=== PATIENT | female | born 1950 ===

== ENCOUNTER 2017-10-23 06:54 | Inpatient (IN) | payer MEDICARE, OTHER ==
[2017-10-23] MEDS ORDERED: Lidocaine 4% (Laryng-O-Jet) Kit MM ONE ×2 (07:03→08:12)
[2017-10-23] MEDS ORDERED: Propofol 10 mg/ml Inj (20 ML) ONE (07:03)
[2017-10-23] MEDS ORDERED: Succinylcholine 200 mg/10 ml Inj IV ONE (07:03)
[2017-10-23] MEDS ORDERED: Rocuronium 10 mg/ml (5 ml) ONE ×2 (07:03→08:11)
[2017-10-23] MEDS ORDERED: Etomidate 20 mg/10ml Inj IV ONE ×2 (07:03→08:12)
[2017-10-23] MEDS ORDERED: Phenylephrine 10 mg/ml Inj ONE ×2 (07:05→08:12)
[2017-10-23 07:11] VITALS: BMI 35.7
[2017-10-23] MEDS ORDERED: Midazolam 2 MG/2 ML VIAL ONE (08:11)
[2017-10-23 08:25] LABS: HEMOGLOBIN 12.9 g/dL (12.0-16.0); MEAN CELL VOLUME 86.6 fl (81.0-99.0); MEAN CORPUSCULAR HEMOGLOBIN 28.5 pg (27.0-31.0); MEAN CORPUSCULAR HGB CONC 32.9 g/dL (33.0-37.0); RBC 4.53 Mil/uL (3.80-5.20); RED CELL DISTRIBUTION WIDTH 15.6 % (11.5-14.5); WHITE BLOOD COUNT 8.6 K/uL (4.8-10.8)
[2017-10-23] MEDS ORDERED: Morphine 1 mg/ml preservative-free Inj(Duramorph) ONE (08:41)
[2017-10-23] MEDS ORDERED: EPINEPHrine 1 mg/ml (1:1000) Inj ONE (08:41)
[2017-10-23] MEDS ORDERED: Thrombin Topical 5,000 Int Units Spray Kit ONE (08:42)
[2017-10-23] MEDS ORDERED: Lactated Ringer's 1,000 ML IV ONE ×2 (08:42→09:30)
[2017-10-23] MEDS ORDERED: Absorbable Gelatin Sponge Size 100 ONE (08:42)
[2017-10-23] MEDS ORDERED: Ciprofloxacin 400mg/200ml D5W 0 MG/0 ML BAG IVPB ONE (08:42)
[2017-10-23] MEDS ORDERED: Clindamycin 600mg/50ml NS 600 MG/50 ML BAG IVPB ONE (09:00)
[2017-10-23] MEDS ORDERED: ePHEDrine 50 mg/ml Inj ONE (09:09)
[2017-10-23] MEDS ORDERED: Vancomycin 1 g Inj IVPB ONE (09:20)
[2017-10-23] MEDS ORDERED: Bupivacaine 0.5% Inj(30mL) IJ ONE (09:44)
[2017-10-23] MEDS ORDERED: Morphine 1 mg/ml preservative-free Inj(Duramorph) IV ONE (09:44)
[2017-10-23] MEDS ORDERED: EPINEPHrine 1 mg/ml (1:1000) Inj IV ONE (09:44)
--- NOTE | 2017-10-23 10:56 | PCM.SURG1 ---
Surgeon's Initial Post Op Note - Surgeon's Notes Surgeon: Felipa Hoang MD Sports Manager: Maritza Bundy PA-C; Mary Suazo Type of Anesthesia: General Endo Pre-Operative Diagnosis: Right knee osteoarthritis Operative Findings: see op report Post-Operative Diagnosis: same as pre-op dx Operation Performed: RTKR Specimen/Specimens Removed: right knee bone and soft tissue Estimated Blood Loss: EBL {In ML}: 150 Date of Surgery/Procedure: 10/23/17 Time of Surgery/Procedure: 09:00
[2017-10-23] MEDS ORDERED: HYDROmorphone 0.5 mg/0.5 ml ISec IVP PRN ×2 (10:58→13:27)
[2017-10-23] MEDS ORDERED: Albuterol 0.083% Inhal Sol (2.5 mg/3 mL) UD ONE (11:09)
[2017-10-23] MEDS ORDERED: Albuterol 0.083% Inhal Sol (2.5 mg/3 mL) UD INH ONE (11:10)
--- NOTE | 2017-10-23 12:02 | OP ---
PROCEDURE DATE: 10/23/2017 PREOPERATIVE DIAGNOSES: Right knee osteoarthritis. POSTOPERATIVE DIAGNOSIS: Right knee osteoarthritis. PROCEDURE: Right total knee replacement. ATTENDING SURGEON: Felipa Hoang MD VESSEL ENGINEER: Maritza Bundy PA-C IMPLANTS SIZE: Size 1 tibia, size 1 femur, 26 mm patella, 11 mm polyethylene insert and these are all the [employer] implants. ANESTHESIA TYPE: General. ESTIMATED BLOOD LOSS: 50 mL. COMPLICATIONS: None. HISTORY: The patient with prolonged history of right knee pain progressively getting worse despite extensive conservative management, which included activity modification, injections, anti-inflammatory modification and physical therapy. X-rays had revealed advanced arthritis. Patient was indicated for total knee replacement due to continued pain and limited mobility. I had a detailed discussion with the patient in the office explaining the nature of the surgery, alternatives of surgery, risks and benefits, rehabilitation protocol and surgical markings. Risks of surgery include but not limited to continued pain, lack of motion, infection, vascular injury, DVT / PE, nerve injury including peroneal nerve dysfunction, reflex sympathetic dystrophy, compartment syndrome, unforeseen medical and/or anesthesia complications, limb loss, and even . The patient expressed an understanding of the risks and possible benefits of the procedure, and is also aware of the alternatives to surgery. PROCEDURE: On the day of the surgery, the patient was admitted to pre-operative holding area. A laterality sheet was completed confirming the correct operative site. The correct surgical knee was marked in the holding area and informed consent was signed from the patient. Once again, I reviewed the risks and benefits of the surgery with the patient in detail. These risks include but are not limited to continued pain, lack of motion, infection, vascular injury, DVT / PE, nerve injury including peroneal nerve dysfunction, reflex sympathetic dystrophy, symptomatic hardware, need for further procedure and surgeries, instability, iatrogenic fractures, compartment syndrome, unforeseen medical and/or anesthesia complications, limb loss, and even . The patient expressed an understanding of the risks and possible benefits of the procedure, also aware of the alternatives to surgery and signed the informed consent. The patient was transported to the operating room and placed in the supine position, general anesthesia was obtained. Exam under anesthesia revealed . A padded tourniquet was applied to patient's operative thigh and appropriate prophylactic antibiotics were given. The operative leg was draped and prepped in standard sterile manner. Timeout was completed, confirming patient's right knee to be the correct operative site. Using an Esmarch, the extremity was exsanguinated and tourniquet was inflated to 350 mmHg. The surgical incision markings were made using patella border, tibial tubercle, patella and quadriceps tendon. Using a 10 blade, a midline incision was made. Skin dissection was taken until the prepatellar fascia was identified and the corners of the patellar tendon were marked for proper closure at the end of the procedure. Using a fresh 10 blade, a medial parapatellar arthrotomy was performed. The knee was exposed in the standard manner. The deep MCL was elevated for exposure, medial and lateral menisci were removed, ACL and PCL were also transected. The tibia was subluxed anteriorly. Planned tibial cut was made with power saw, using extra-medullary guide, perpendicular to mechanical axis of the tibia. After the cut was made, the alignment was also checked and was found to be appropriate. Tibial cut surface was measured with trial base plate and it was noted that size 1 tibial baseplate was provide sufficient coverage without overhang. Tibial component was externally rotated and marked. Next, the knee was placed into 90 degrees of flexion. A drill hole was made within the femoral notch anterior to PCL insertion for placement of intramedullary femoral jag. Intramedullary femoral jag was inserted within the femoral canal and planned distal femoral cut was made. After the cut, knee was brought into full extension. Spacer blocks were used to check the extension balancing both in full extension and 30 degrees of flexion. It was found that a 11 mm trial spacer block allowed full extension with symmetric varus and valgus balancing. Next we proceed with Patella resurfacing. Patella width was found to have [place] patella width was 24. Using the free-hand technique the arthritic patella surface was resected. Patella was sized using the guide and it was noted that the patella button size was 26 mm. Patella dome button would be appropriate for the patient. Next the size of femoral component was determined using the posterior referencing guide. It was noted that a size 1 femoral implant. Femur would be appropriate for this patient without causing any significant notching. A 4 x 1 cutting block was placed and flexion gap balancing was checked. The flexion gap was found to be symmetric to the extension gap. Anterior and posterior condyle, anterior and posterior chamfer cuts were made. Next, appropriate size box cut for femoral component was prepared using the guide. The femoral trial component was impacted onto the distal femur. Appropriate size tibial trial component was also placed on the cut surface of the tibia. Using the drill and punch, keel for tibial implant was prepared. Trial tibial tray was secured onto the tibia using pins. Different size trial polyethylene inserts were secured on to the trial tibial tray to critically assess the following parameters: Full range of motion, extension and flexion gap balancing, mid-flexion stability, anterior and posterior drawer, and patellar tracking. All parameter were found to be satisfactory with 11 mm insert. All the trial components were removed. Implants were opened on the back table. Cement was mixed and we proceed with cement fixation of the implants. Tibial tray, femoral component and patellar dome button were secured with cement. Polyethylene insert was secured onto the tibial tray using locking mechanism. The knee was reduced and brought into full extension. Cement was allowed to harden until final component fixation. Knee was taken through the final range of motion for stability testing, and found to be satisfactory. 60 cc of custom cocktail mixture was injected into posterior capsule, MCL, LCL, quadriceps tendon, and patellar tendon. Wound was copiously irrigated with sterile antibiotic solution using pulse lavage. Arthrotomy was closed using heavy suture and wound was closed in standard manner. Patient was extubated, transferred to stretcher and taken to the recovery room. Post-operative instructions were provided, physical therapy consult was requested along with DVT prophylaxis and appropriate pain medications. During this procedure, I was assisted by Maritza Bundy PA-C, who assisted in positioning the patient on the operating room table as well as transferring the patient from the operating room table to the recovery room stretcher. In addition, Maritza Bundy PA-C assisted me during the actual operative procedure by positioning, protecting critical neurovascular structures, exposure of the joint, and proper positioning of the implants. The presence of Maritza Bundy PA-C as my operative special education teaching assistant was medically necessary to ensure the utmost safety of the patient in the pre, intra-, and post-operative periods. Felipa Hoang MD
--- NOTE | 2017-10-23 13:15 | RAD ---
PROCEDURE: Right Knee Radiographs. HISTORY: s/p RTKR COMPARISON: None. FINDINGS: The patient is status post total right knee arthroplasty. The tibial component of the prosthesis is positioned slightly medially off center relative to the tibial plateau. A small amount expected air and fluid is seen in the suprapatellar bursa. A wound VAC and skin odalis are present anteriorly. IMPRESSION: Status post total right knee arthroplasty as described above.
[2017-10-23] MEDS ORDERED: Benzocaine/Menthol (Cepacol) Lozenge PO PRN (15:50)
[2017-10-23] MEDS: Oxycodone/Acetaminophen 5/325 mg Tab PO PRN (18:29)
[2017-10-23] MEDS: Insulin Lispro Mix 75/25 100 units/ml (HumaLog) 10ml SC SCH (18:30)
[2017-10-23] MEDS: oxyCODONE 10 mg ER Tab (oxyCONTIN) PO SCH (20:52)
[2017-10-23] MEDS: Insulin Detemir 100 Units/ml Inj SC SCH (22:21)
[2017-10-24] MEDS: Oxycodone/Acetaminophen 5/325 mg Tab PO PRN ×3 (02:25→14:31)
[2017-10-24 06:25] LABS: BASO % 0.3 % (0.0-2.0); EOS # 0.3 K/uL (0.0-0.7); EOS % 2.4 % (0.0-4.0); HEMOGLOBIN 10.5 g/dL (12.0-16.0); LYMPH # 1.3 K/uL (1.0-4.3); LYMPH % 10.5 % (20.0-40.0); MEAN CELL VOLUME 87.2 fl (81.0-99.0); MEAN CORPUSCULAR HEMOGLOBIN 28.5 pg (27.0-31.0); MEAN CORPUSCULAR HGB CONC 32.7 g/dL (33.0-37.0); MEAN PLATELET VOLUME 9.8 fl (7.2-11.7); MONO # 1.6 K/uL (0.0-0.8); MONO % 13.7 % (0.0-10.0); NEUT # 8.7 K/uL (1.8-7.0); NEUT % 73.1 % (50.0-75.0); NRBC % 0.1 % (0.0-0.0); RBC 3.68 Mil/uL (3.80-5.20); WHITE BLOOD COUNT 11.9 K/uL (4.8-10.8)
[2017-10-24 06:46] LABS: CALCIUM 7.7 mg/dL (8.4-10.2)
--- NOTE | 2017-10-24 08:28 | CP.PCM.HP ---
History of Present Illness - History of Present Illness History of Present Illness: pt admitted yesterday for r tkr after failing outpt therapy. pt has h/o mi and dm2, on tele and stable. distal pms intact. no f/c, n/v/d. bw noted Present on Admission - Present on Admission Any Indicators Present on Admission: Yes History of Uncontrolled Diabetes: Yes Review of Systems - Musculoskeletal Musculoskeletal: As Per HPI, Arthralgias Past Patient History - Infectious Disease Hx of Infectious Diseases: None - Tetanus Immunizations Tetanus Immunization: Unknown - Past Medical History & Family History Past Medical History?: Yes - Past Social History Smoking Status: Never Smoked - CARDIAC Hx Cardiac Disorders: Yes Hx Circulatory Problems: Yes Hx Congestive Heart Failure: Yes Hx Heart Attack: Yes Hx Hypercholesterolemia: Yes Hx Hypertension: Yes Hx Pacemaker: No Hx Peripheral Edema: Yes Other/Comment: cardiac stent - PULMONARY Hx Respiratory Disorders: Yes Hx Asthma: Yes Hx Bronchitis: Yes Hx Pneumonia: Yes Hx Tuberculosis: No - NEUROLOGICAL Hx Neurological Disorder: Yes HX Cerebrovascular Accident: No Hx Paralysis: No Hx Seizures: No Other/Comment: Neuropathy - HEENT Hx HEENT Problems: Yes (glasses) Hx Cataracts: Yes - RENAL Hx Chronic Kidney Disease: Yes Hx Renal Failure: Yes Other/Comment: left kidney 80% functioning; right kidney 10% functioning - ENDOCRINE/METABOLIC Hx Endocrine Disorders: Yes Hx Diabetes Mellitus Type 1: Yes Hx Diabetes Mellitus Type 2: Yes - HEMATOLOGICAL/ONCOLOGICAL Hx Blood Disorders: No Hx Anemia: Yes Hx Blood Transfusions: No Hx Blood Transfusion Reaction: No Hx Cancer: No Hx Human Immunodeficiency Virus (HIV): No - INTEGUMENTARY Hx Dermatological Problems: No - MUSCULOSKELETAL/RHEUMATOLOGICAL Hx Musculoskeletal Disorders: Yes Hx Arthritis: Yes Hx Falls: No Hx Osteoarthritis: Yes Hx Osteoporosis: Yes Hx Unsteady Gait: Yes (walker) Other/Comment: egd, 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, gastroparesis, duodenal diverticulum - GASTROINTESTINAL Hx Gastrointestinal Disorders: Yes (APPENDECTOMY) Hx Gall Bladder Disease: Yes (CHOLECYSTECTOMY) Hx Gastritis: Yes Other/Comment: constipation, obese - GENITOURINARY/GYNECOLOGICAL Hx Genitourinary Disorders: Yes Hx Incontinence: Yes Hx Sexually Transmitted Disorders: No Other/Comment: urinary incontinence - PSYCHIATRIC Hx Psychophysiologic Disorder: Yes Hx Anxiety: Yes Hx Depression: Yes Hx Emotional Abuse: No Hx Hallucinations: Yes Hx Physical Abuse: No Hx Substance Use: No Other/Comment: Hallucinations - SURGICAL HISTORY Hx Surgeries: Yes Hx Amputation: Yes (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 Bladder surgery - ANESTHESIA Hx Anesthesia: Yes Hx Anesthesia Reactions: No Hx Malignant Hyperthermia: No Meds Allergies/Adverse Reactions: Allergies Allergy/AdvReac Type Severity Reaction Status Date / Time ampicillin Allergy ANAPHYLAXIS Verified 10/04/17 15:09 Penicillins Allergy ANAPHYLAXIS Verified 10/04/17 15:09 Physical Exam - Constitutional Appears: Well, Non-toxic, No Acute Distress - Head Exam Head Exam: ATRAUMATIC, NORMAL INSPECTION, NORMOCEPHALIC - Eye Exam Eye Exam: EOMI, Normal appearance, PERRL Pupil Exam: NORMAL ACCOMODATION, PERRL - ENT Exam ENT Exam: Mucous Membranes Moist, Normal Exam - Neck Exam Neck exam: Positive for: Normal Inspection - Respiratory Exam Respiratory Exam: Clear to Auscultation Bilateral, NORMAL BREATHING PATTERN - Cardiovascular Exam Cardiovascular Exam: REGULAR RHYTHM, RRR, +S1, +S2 - GI/Abdominal Exam GI & Abdominal Exam: Normal Bowel Sounds, Soft. absent: Tenderness - Extremities Exam Extremities exam: Positive for: full ROM, normal capillary refill, normal inspection, tenderness, pedal pulses present Additional comments: r knee pain. distal pms intact - Back Exam Back exam: NORMAL INSPECTION - Neurological Exam Neurological exam: Abnormal Gait, Alert, CN II-XII Intact, Oriented x3, Reflexes Normal - Psychiatric Exam Psychiatric exam: Normal Affect, Normal Mood - Skin Skin Exam: Dry, Intact, Normal Color, Warm Results - Vital Signs Recent Vital Signs: Last Vital Signs Temp 98.4 F 10/24/17 07:44 Pulse 71 10/24/17 07:44 Resp 18 10/24/17 07:44 BP 155/72 H 10/24/17 07:44 Pulse Ox 98 10/24/17 07:44 - Labs Result Diagrams: 10/24/17 05:30 10/24/17 05:30 Labs: Laboratory Results - last 24 hr 10/23/17 10/23/17 10/23/17 07:41 07:48 07:48 WBC 8.6 RBC 4.53 Hgb 12.9 Hct 39.2 MCV 86.6 MCH 28.5 MCHC 32.9 L RDW 15.6 H Plt Count 207 MPV Neut % (Auto) Lymph % (Auto) Mitchell % (Auto) Eos % (Auto) Baso % (Auto) Neut # (Auto) Lymph # (Auto) Mitchell # (Auto) Eos # (Auto) Baso # (Auto) Sodium Potassium Chloride Carbon Dioxide Anion Gap BUN Creatinine Est GFR ( Amer) Est GFR (Non-Af Amer) POC Glucose (mg/dL) 113 H Random Glucose Calcium Blood Type A NEGATIVE Antibody Screen Negative 10/23/17 10/23/17 10/24/17 11:04 21:10 04:54 WBC RBC Hgb Hct MCV MCH MCHC RDW Plt Count MPV Neut % (Auto) Lymph % (Auto) Mitchell % (Auto) Eos % (Auto) Baso % (Auto) Neut # (Auto) Lymph # (Auto) Mitchell # (Auto) Eos # (Auto) Baso # (Auto) Sodium Potassium Chloride Carbon Dioxide Anion Gap BUN Creatinine Est GFR ( Amer) Est GFR (Non-Af Amer) POC Glucose (mg/dL) 114 H 106 147 H Random Glucose Calcium Blood Type Antibody Screen 10/24/17 10/24/17 05:30 05:30 WBC 11.9 H RBC 3.68 L Hgb 10.5 L D Hct 32.1 L MCV 87.2 MCH 28.5 MCHC 32.7 L RDW 15.0 H Plt Count 173 MPV 9.8 Neut % (Auto) 73.1 Lymph % (Auto) 10.5 L Mitchell % (Auto) 13.7 H Eos % (Auto) 2.4 Baso % (Auto) 0.3 Neut # (Auto) 8.7 H Lymph # (Auto) 1.3 Mitchell # (Auto) 1.6 H Eos # (Auto) 0.3 Baso # (Auto) 0.0 Sodium 139 Potassium 4.8 Chloride 103 Carbon Dioxide 26 Anion Gap 15 BUN 32 H Creatinine 1.1 Est GFR ( Amer) 60 Est GFR (Non-Af Amer) 49 POC Glucose (mg/dL) Random Glucose 140 H Calcium 7.7 L Blood Type Antibody Screen Assessment & Plan (1) DVT prophylaxis Assessment and Plan: scd and aehose lovenox when cleared by ortho Status: Acute (2) Osteoarthritis of right knee Assessment and Plan: pod 1 s/p tkr. pain control ortho pt/ot john Status: Acute (3) Diabetes type 2, uncontrolled Assessment and Plan: home meds, fsbg, diet Status: Acute - Assessment and Plan (Free Text) Assessment: cont all home meds monitor on tele x 24h postop then downgrade to m/s if stable Decision To Admit - Pt Status Changed To: Hospital Disposition Of: Inpatient - Admit Certification Admit to Inpatient:: After my assessment, the patient will require hospitalization for at least two midnights. This is because of the severity of symptoms shown, intensity of services needed, and/or the medical risk in this patient being treated as an outpatient. - . Bed Request Type: Telemetry Admitting Physician: Pat Gerardo
[2017-10-24] MEDS: Insulin Lispro Mix 75/25 100 units/ml (HumaLog) 10ml SC SCH ×2 (09:06→17:27)
[2017-10-24] MEDS: Pantoprazole 40 mg EC Tab PO SCH (09:10)
[2017-10-24] MEDS: oxyCODONE 10 mg ER Tab (oxyCONTIN) PO SCH ×2 (09:13→21:09)
--- NOTE | 2017-10-24 09:14 | CP.PCM.PN ---
Subjective - Date & Time of Evaluation Date of Evaluation: 10/24/17 Time of Evaluation: 08:45 - Subjective Subjective: S/P RTKR POD#1 Pt seen and examined at bedside, in NAD Pt c/o throat pain fromintubation, dry mouth and Right knee pain Pt denies any chest pain, SOB, N/V/D, numbness/tingling RLE Objective - Vital Signs/Intake and Output Vital Signs (last 24 hours): Temp Pulse Resp BP Pulse Ox 98.4 F 71 18 155/72 H 98 10/24/17 07:44 10/24/17 07:44 10/24/17 07:44 10/24/17 07:44 10/24/17 07:44 - Medications Medications: Current Medications Acetaminophen (Tylenol 325mg Tab) 325 mg PO Q4 PRN PRN Reason: pain1-3 Aspirin (Ecotrin) 81 mg PO DAILY [facility] Atorvastatin Calcium (Lipitor) 20 mg PO HS [facility] Last Admin: 10/23/17 21:03 Dose: 20 mg Benzocaine/Menthol (Cepacol Sore Throat) 1 sunny PO Q2 PRN PRN Reason: Sore Throat Last Admin: 10/23/17 18:35 Dose: 1 sunny Celecoxib (Celebrex) 100 mg PO Q12 [facility] Last Admin: 10/23/17 20:52 Dose: 100 mg Clopidogrel Bisulfate (Plavix) 75 mg PO DAILY [facility] Docusate Sodium (Colace) 100 mg PO TID [facility] Last Admin: 10/23/17 18:30 Dose: 100 mg Famotidine (Pepcid) 20 mg PO DAILY [facility] Ferrous Sulfate (Feosol) 325 mg PO DAILY [facility] Vancomycin HCl 1 gm/ Sodium (Chloride) 250 mls @ 166.667 mls/hr IVPB ONCE ONE PRN Reason: Protocol Stop: 10/24/17 09:29 Insulin Detemir (Levemir) 20 units SC HS [facility] Last Admin: 10/23/17 22:21 Dose: 20 units Insulin Lispro Protam/Lispro Human (Humalog Mix 75/25) 20 units SC ACBD [facility] Last Admin: 10/23/17 18:30 Dose: 20 units Ketorolac Tromethamine (Toradol) 15 mg IM Q8 [facility] Stop: 10/25/17 23:59 Last Admin: 10/24/17 01:07 Dose: 15 mg Metoprolol Tartrate (Lopressor) 25 mg PO BID [facility] Last Admin: 10/23/17 18:29 Dose: Not Given Montelukast Sodium (Singulair) 10 mg PO HS [facility] Last Admin: 10/23/17 21:04 Dose: 10 mg Oxycodone HCl (Oxycontin Extended Release Tab) 10 mg PO Q12 [facility] Stop: 11/06/17 21:01 Last Admin: 10/23/17 20:52 Dose: 10 mg Oxycodone/Acetaminophen (Percocet 5/325 Mg Tab) 1 tab PO Q4 PRN PRN Reason: pain4-6 Stop: 10/26/17 15:35 Last Admin: 10/24/17 02:25 Dose: 1 tab Pantoprazole Sodium (Protonix Ec Tab) 40 mg PO DAILY [facility] Sitagliptin Phosphate (Januvia) 50 mg PO DAILY [facility] - Labs Labs: 10/24/17 05:30 10/24/17 05:30 - Constitutional Appears: Well, No Acute Distress - Respiratory Exam Respiratory Exam: Clear to Ausculation Bilateral, NORMAL BREATHING PATTERN - Cardiovascular Exam Cardiovascular Exam: REGULAR RHYTHM, RRR - Extremities Exam Additional comments: RLE: Knee dressing C/D/I Pravena dressing in place, functioning well Calves soft and nontender b/l N/V intact distally Normal ROM at ankle distal pulses wnl No foot drop Assessment and Plan - Assessment and Plan (Free Text) Assessment: 67 yo F s/p RTKR POD#1 Plan: Pain Control Incentive spirometer DVT ppx- plavix to restart today SCD b/l LE F/U labs PT/OT- WBAT RLE
[2017-10-24] MEDS: Insulin Detemir 100 Units/ml Inj SC SCH (22:52)
[2017-10-25 00:01] VITALS: RESP 18
[2017-10-25] MEDS: Oxycodone/Acetaminophen 5/325 mg Tab PO PRN ×3 (03:40→13:45)
[2017-10-25 05:44] LABS: BASO # 0.1 K/uL (0.0-0.2); BASO % 0.6 % (0.0-2.0); EOS # 0.4 K/uL (0.0-0.7); EOS % 3.2 % (0.0-4.0); HEMOGLOBIN 10.3 g/dL (12.0-16.0); LYMPH % 7.9 % (20.0-40.0); MEAN CORPUSCULAR HEMOGLOBIN 28.3 pg (27.0-31.0); MEAN CORPUSCULAR HGB CONC 32.5 g/dL (33.0-37.0); MEAN PLATELET VOLUME 9.7 fl (7.2-11.7); MONO # 1.8 K/uL (0.0-0.8); MONO % 13.4 % (0.0-10.0); NEUT # 9.9 K/uL (1.8-7.0); NEUT % 74.9 % (50.0-75.0); PLATELET COUNT 164 K/uL (130-400); RBC 3.65 Mil/uL (3.80-5.20); RED CELL DISTRIBUTION WIDTH 15.3 % (11.5-14.5); WHITE BLOOD COUNT 13.3 K/uL (4.8-10.8)
[2017-10-25 05:55] LABS: CALCIUM 7.5 mg/dL (8.4-10.2)
[2017-10-25] MEDS ORDERED: Sodium Chloride 0.9% 1,000 ML IV SCH (06:30)
--- NOTE | 2017-10-25 07:57 | CP.PCM.PN ---
Subjective - Date & Time of Evaluation Date of Evaluation: 10/25/17 Time of Evaluation: 07:55 - Subjective Subjective: doing well, pain controlled at present. ortho appriciated bw noted, ivf started andpt encouraged to take po having pain w/ sittingon bedpan reducing fluids. pt also noted to have blister to r thigh from cpm machine. wound consult nurse requested. no f/c, n/v/d Objective - Vital Signs/Intake and Output Vital Signs (last 24 hours): Temp Pulse Resp BP Pulse Ox 98.2 F 63 18 128/51 L 98 10/25/17 07:40 10/25/17 07:40 10/25/17 07:40 10/25/17 07:40 10/25/17 07:40 - Medications Medications: Current Medications Acetaminophen (Tylenol 325mg Tab) 325 mg PO Q4 PRN PRN Reason: pain1-3 Aspirin (Ecotrin) 81 mg PO DAILY [facility] Last Admin: 10/24/17 09:03 Dose: 81 mg Atorvastatin Calcium (Lipitor) 20 mg PO HS [facility] Last Admin: 10/24/17 21:09 Dose: 20 mg Benzocaine/Menthol (Cepacol Sore Throat) 1 sunny PO Q2 PRN PRN Reason: Sore Throat Last Admin: 10/23/17 18:35 Dose: 1 sunny Celecoxib (Celebrex) 100 mg PO Q12 [facility] Last Admin: 10/24/17 22:52 Dose: 100 mg Clopidogrel Bisulfate (Plavix) 75 mg PO DAILY [facility] Last Admin: 10/24/17 09:09 Dose: 75 mg Docusate Sodium (Colace) 100 mg PO TID [facility] Last Admin: 10/24/17 17:26 Dose: 100 mg Famotidine (Pepcid) 20 mg PO DAILY [facility] Last Admin: 10/24/17 09:08 Dose: 20 mg Ferrous Sulfate (Feosol) 325 mg PO DAILY [facility] Last Admin: 10/24/17 09:09 Dose: 325 mg Sodium Chloride (Sodium Chloride 0.9%) 1,000 mls @ 100 mls/hr IV .Q10H [facility] Stop: 10/26/17 06:26 Insulin Detemir (Levemir) 20 units SC [facility] Last Admin: 10/24/17 22:52 Dose: 20 units Insulin Lispro Protam/Lispro Human (Humalog Mix 75/25) 20 units SC ACBD [facility] Last Admin: 10/24/17 17:27 Dose: 20 units Ketorolac Tromethamine (Toradol) 15 mg IM Q8 [facility] Stop: 10/25/17 23:59 Last Admin: 10/25/17 00:59 Dose: Not Given Metoprolol Tartrate (Lopressor) 25 mg PO BID [facility] Last Admin: 10/24/17 17:29 Dose: 25 mg Montelukast Sodium (Singulair) 10 mg PO HS [facility] Last Admin: 10/24/17 21:09 Dose: 10 mg Oxycodone HCl (Oxycontin Extended Release Tab) 10 mg PO Q12 [facility] Stop: 11/06/17 21:01 Last Admin: 10/24/17 21:09 Dose: 10 mg Oxycodone/Acetaminophen (Percocet 5/325 Mg Tab) 1 tab PO Q4 PRN PRN Reason: pain4-6 Stop: 10/26/17 15:35 Last Admin: 10/25/17 03:40 Dose: 1 tab Pantoprazole Sodium (Protonix Ec Tab) 40 mg PO DAILY [facility] Last Admin: 10/24/17 09:10 Dose: 40 mg Sitagliptin Phosphate (Januvia) 50 mg PO DAILY [facility] Last Admin: 10/24/17 09:07 Dose: 50 mg - Labs Labs: 10/25/17 05:05 10/25/17 05:05 - Constitutional Appears: Well, Non-toxic, No Acute Distress - Head Exam Head Exam: ATRAUMATIC, NORMAL INSPECTION, NORMOCEPHALIC - Eye Exam Eye Exam: EOMI, Normal appearance, PERRL Pupil Exam: NORMAL ACCOMODATION, PERRL - ENT Exam ENT Exam: Mucous Membranes Moist, Normal Exam - Neck Exam Neck Exam: Full ROM, Normal Inspection. absent: Lymphadenopathy - Respiratory Exam Respiratory Exam: Clear to Ausculation Bilateral, NORMAL BREATHING PATTERN - Cardiovascular Exam Cardiovascular Exam: REGULAR RHYTHM, RRR, +S1, +S2. absent: Murmur - GI/Abdominal Exam GI & Abdominal Exam: Soft, Normal Bowel Sounds. absent: Tenderness - Extremities Exam Extremities Exam: Full ROM, Normal Capillary Refill, Normal Inspection. absent : Joint Swelling, Pedal Edema - Back Exam Back Exam: NORMAL INSPECTION - Neurological Exam Neurological Exam: Alert, Awake, CN II-XII Intact, Normal Gait, Oriented x3 - Psychiatric Exam Psychiatric exam: Normal Affect, Normal Mood - Skin Skin Exam: Dry, Intact, Normal Color, Warm Additional comments: blistered noted to anterior r thigh Assessment and Plan (1) DVT prophylaxis Status: Acute (2) Osteoarthritis of right knee Status: Acute (3) Diabetes type 2, uncontrolled Status: Acute - Assessment and Plan (Free Text) Assessment: (1) DVT prophylaxis Assessment and Plan: scd and aehose lovenox when cleared by ortho Status: Acute (2) Osteoarthritis of right knee Assessment and Plan: pod 2 s/p tkr. pain control ortho pt/ot john Status: Acute (3) Diabetes type 2, uncontrolled Assessment and Plan: home meds, fsbg, diet Status: Acute 4-blister to thigh-wound rn, keep site c/d ?? john today or tomorrow
[2017-10-25] MEDS: oxyCODONE 10 mg ER Tab (oxyCONTIN) PO SCH (09:04)
[2017-10-25] MEDS: Insulin Lispro Mix 75/25 100 units/ml (HumaLog) 10ml SC SCH (09:12)
[2017-10-25] MEDS: Pantoprazole 40 mg EC Tab PO SCH (09:20)
[2017-10-25 09:56] LABS: BANDS 3 % (0-2); EOSINOPHIL 4 % (0-7); LYMPHOCYTE 5 % (20-50); MONOCYTE 9 % (0-10); NEUTROPHIL 79 % (42-75); PLATELET ESTIMATE NORMAL (NORMAL); TOTAL CELLS COUNTED 100
[2017-10-25 09:57] LABS: ANISOCYTOSIS SLIGHT; HYPOCHROMIC SLIGHT
--- NOTE | 2017-10-25 10:40 | PQF GENQUE ---
This form is a permanent part of the medical record 10/25/17 Alexandr Alonzo DPN, BIOLOGY INSTRUCTOR H&P PMH template HX CHF: Yes. Medication includes Lopressor. Old Echo from 2016 EF 60-65% Full report in EMR. Please specify the type and acuity of heart failure in your progress notes if known Clarification of your documentation is requested to better reflect the severity of illness and intensity of treatment of your patient. Indicators present PHYSICIAN'S RESPONSE Based on your medical judgment of the clinical indicators outlined above please clarify the following: [] Practitioner response h/o cva, no s/s same at present. [] If unable to determine, please check the box, sign and date. Present On Admission (POA) Indicator: [x] Present at the time of admission [] Not present at the time of admission [] Clinically Undetermined In responding to this query, please exercise your independent professional judgment. The fact that a question is asked does not imply that any particular answer is desired or expected. Thank you for your clarification on this documentation. If you have any questions please call:[phone] * Thank you, Berna Castanon RN CDMP MTDD
--- NOTE | 2017-10-25 10:53 | CP.PCM.PN ---
Subjective - Date & Time of Evaluation Date of Evaluation: 10/25/17 Time of Evaluation: 10:00 - Subjective Subjective: Patient complaining of a lot of knee pain. Denies CP/SOB/dizziness/dysuria Objective - Vital Signs/Intake and Output Vital Signs (last 24 hours): Temp Pulse Resp BP Pulse Ox 98.2 F 55 L 18 128/51 L 98 10/25/17 07:40 10/25/17 09:19 10/25/17 07:40 10/25/17 09:19 10/25/17 07:40 - Medications Medications: Current Medications Acetaminophen (Tylenol 325mg Tab) 325 mg PO Q4 PRN PRN Reason: pain1-3 Aspirin (Ecotrin) 81 mg PO DAILY [facility] Last Admin: 10/25/17 09:13 Dose: 81 mg Atorvastatin Calcium (Lipitor) 20 mg PO HS [facility] Last Admin: 10/24/17 21:09 Dose: 20 mg Benzocaine/Menthol (Cepacol Sore Throat) 1 sunny PO Q2 PRN PRN Reason: Sore Throat Last Admin: 10/23/17 18:35 Dose: 1 sunny Celecoxib (Celebrex) 100 mg PO Q12 [facility] Last Admin: 10/25/17 09:13 Dose: 100 mg Clopidogrel Bisulfate (Plavix) 75 mg PO DAILY [facility] Last Admin: 10/25/17 09:20 Dose: 75 mg Docusate Sodium (Colace) 100 mg PO TID [facility] Last Admin: 10/25/17 09:13 Dose: 100 mg Famotidine (Pepcid) 20 mg PO DAILY [facility] Last Admin: 10/25/17 09:20 Dose: 20 mg Ferrous Sulfate (Feosol) 325 mg PO DAILY [facility] Last Admin: 10/25/17 09:13 Dose: 325 mg Sodium Chloride (Sodium Chloride 0.9%) 1,000 mls @ 100 mls/hr IV .Q10H [facility] Stop: 10/26/17 06:26 Insulin Detemir (Levemir) 20 units SC HS [facility] Last Admin: 10/24/17 22:52 Dose: 20 units Insulin Lispro Protam/Lispro Human (Humalog Mix 75/25) 20 units SC ACBD [facility] Last Admin: 10/25/17 09:12 Dose: 20 units Ketorolac Tromethamine (Toradol) 15 mg IM Q8 [facility] Stop: 10/25/17 23:59 Last Admin: 10/25/17 09:21 Dose: 15 mg Metoprolol Tartrate (Lopressor) 25 mg PO BID [facility] Last Admin: 10/25/17 09:19 Dose: Not Given Montelukast Sodium (Singulair) 10 mg PO HS [facility] Last Admin: 10/24/17 21:09 Dose: 10 mg Oxycodone HCl (Oxycontin Extended Release Tab) 10 mg PO Q12 [facility] Stop: 11/06/17 21:01 Last Admin: 10/25/17 09:04 Dose: 10 mg Oxycodone/Acetaminophen (Percocet 5/325 Mg Tab) 1 tab PO Q4 PRN PRN Reason: pain4-6 Stop: 10/26/17 15:35 Last Admin: 10/25/17 09:04 Dose: 1 tab Pantoprazole Sodium (Protonix Ec Tab) 40 mg PO DAILY [facility] Last Admin: 10/25/17 09:20 Dose: 40 mg Sitagliptin Phosphate (Januvia) 50 mg PO DAILY [facility] Last Admin: 10/25/17 09:14 Dose: 50 mg - Labs Labs: 10/25/17 05:05 10/25/17 05:05 - Extremities Exam Additional comments: Right knee: prevena dressing intact, operational. +ROM ankle/toes, sensation intact, +PT/DP pulses calves soft NT neghomans Assessment and Plan (1) Osteoarthritis of right knee Assessment & Plan: POD#2 s/p right TKR minimal progress with PT so far encourage OOB IS d/c planning to rehab f/u labs, monitor WBC but afeb d/w Dr. Hoang, agrees with above Status: Acute
[2017-10-25] MEDS ORDERED: DiphenhydrAMINE 50 mg/ml Inj IVP ONE (12:00)
[2017-10-25 12:20] VITALS: BP 128/70; PULSE 61; TEMP 98.6; O2SAT 96
--- NOTE | 2017-10-25 14:57 | CP.PCM.DIS ---
Provider - Provider Date of Admission: 10/23/17 15:24 Attending physician: Pat Gerardo MD Primary care physician: Norma Peña MD Time Spent in preparation of Discharge (in minutes): 5 Diagnosis - Discharge Diagnosis (1) DVT prophylaxis Status: Acute (2) Osteoarthritis of right knee Status: Acute (3) Diabetes type 2, uncontrolled Status: Acute Hospital Course - Lab Results Lab Results: Most Recent Lab Values WBC 13.3 K/uL (4.8-10.8) H 10/25/17 05:05 RBC 3.65 Mil/uL (3.80-5.20) L 10/25/17 05:05 Hgb 10.3 g/dL (12.0-16.0) L 10/25/17 05:05 Hct 31.8 % (34.0-47.0) L 10/25/17 05:05 MCV 87.0 fl (81.0-99.0) 10/25/17 05:05 MCH 28.3 pg (27.0-31.0) 10/25/17 05:05 MCHC 32.5 g/dL (33.0-37.0) L 10/25/17 05:05 RDW 15.3 % (11.5-14.5) H 10/25/17 05:05 Plt Count 164 K/uL (130-400) 10/25/17 05:05 MPV 9.7 fl (7.2-11.7) 10/25/17 05:05 Neut % (Auto) 74.9 % (50.0-75.0) 10/25/17 05:05 Lymph % (Auto) 7.9 % (20.0-40.0) L 10/25/17 05:05 Adams % (Auto) 13.4 % (0.0-10.0) H 10/25/17 05:05 Eos % (Auto) 3.2 % (0.0-4.0) 10/25/17 05:05 Baso % (Auto) 0.6 % (0.0-2.0) 10/25/17 05:05 Neut # (Auto) 9.9 K/uL (1.8-7.0) H 10/25/17 05:05 Lymph # (Auto) 1.0 K/uL (1.0-4.3) 10/25/17 05:05 Adams # (Auto) 1.8 K/uL (0.0-0.8) H 10/25/17 05:05 Eos # (Auto) 0.4 K/uL (0.0-0.7) 10/25/17 05:05 Baso # (Auto) 0.1 K/uL (0.0-0.2) 10/25/17 05:05 Neutrophils % (Manual) 79 % (42-75) H 10/25/17 05:05 Band Neutrophils % 3 % (0-2) H 10/25/17 05:05 Lymphocytes % (Manual) 5 % (20-50) L 10/25/17 05:05 Monocytes % (Manual) 9 % (0-10) 10/25/17 05:05 Eosinophils % (Manual) 4 % (0-7) 10/25/17 05:05 Platelet Estimate Normal (NORMAL) 10/25/17 05:05 Hypochromasia (manual) Slight 10/25/17 05:05 Anisocytosis (manual) Slight 10/25/17 05:05 Sodium 136 mmol/l (132-148) 10/25/17 05:05 Potassium 4.7 MMOL/L (3.6-5.0) 10/25/17 05:05 Chloride 101 mmol/L (98-107) 10/25/17 05:05 Carbon Dioxide 24 mmol/L (22-30) 10/25/17 05:05 Anion Gap 16 (10-20) 10/25/17 05:05 BUN 35 mg/dl (7-17) H 10/25/17 05:05 Creatinine 1.3 mg/dl (0.7-1.2) H 10/25/17 05:05 Est GFR ( Amer) 49 10/25/17 05:05 Est GFR (Non-Af Amer) 41 10/25/17 05:05 POC Glucose (mg/dL) 156 mg/dL (65-110) H 10/25/17 05:10 Random Glucose 157 mg/dL (65-105) H 10/25/17 05:05 Calcium 7.5 mg/dL (8.4-10.2) L 10/25/17 05:05 Blood Type A NEGATIVE 10/23/17 07:48 Antibody Screen Negative 10/23/17 07:48 BBK History Checked Patient has bt 10/23/17 07:48 - Hospital Course Hospital Course: r tkr, pain control, pt/ot Discharge Exam - Head Exam Head Exam: ATRAUMATIC, NORMAL INSPECTION, NORMOCEPHALIC Discharge Plan - Discharge Medications Prescriptions: Rivaroxaban [Xarelto Starter Pack] 20 mg PO DAILY #14 tab - Follow Up Plan Condition: GOOD Disposition: HOME/ ROUTINE Additional Instructions: final dx-r knee oa, tkr will monitor cbc, cmp in [facility], f/u urine, stay hydraed. pain control xarelto x [address] calhoun all communicated to CHETAN cates at [facility] Referrals: Norma Peña MD [Primary Care Provider] -
[2017-10-25 16:16] LABS: SQUAMOUS EPITHIAL < 1 /hpf (0-5); URINE BILIRUBIN NEGATIVE (NEGATIVE); URINE BLOOD NEGATIVE (NEGATIVE); URINE CLARITY SLIGHTY-CLOUDY (Clear); URINE COLOR YELLOW (YELLOW); URINE GLUCOSE (UA) NEG (Normal); URINE LEUKOCYTE ESTERASE NEG Leu/uL (Negative); URINE PROTEIN 100 mg/dL (NEGATIVE); URINE UROBILINOGEN 0.2-1.0 mg/dL (0.2-1.0)
== END 2017-10-25 15:10 | DRG 470 ==
LOC: H.OPSURG 06:54 → H.TEL 15:24
PROVIDERS: ADMIT Family Medicine; ATTEND Family Medicine
PROC: 0SRC0J9 Replacement of Right Knee Joint with Synthetic Substitute, Cemented, Open Approach (ICD-10-PCS; principal; 2017-10-23 07:30)
DX: M17.11 Unilateral primary osteoarthritis, right knee (principal); I13.0 Hypertensive heart and chronic kidney disease with heart failure and stage 1 through stage 4 chronic kidney disease, or unspecified chronic kidney disease; E11.65 Type 2 diabetes mellitus with hyperglycemia; E11.22 Type 2 diabetes mellitus with diabetic chronic kidney disease; I12.9 Hypertensive chronic kidney disease with stage 1 through stage 4 chronic kidney disease, or unspecified chronic kidney disease; N18.9 Chronic kidney disease, unspecified; I25.2 Old myocardial infarction; E78.00 Pure hypercholesterolemia, unspecified; Z88.0 Allergy status to penicillin; E11.42 Type 2 diabetes mellitus with diabetic polyneuropathy; I50.9 Heart failure, unspecified; S70.321A Blister (nonthermal), right thigh, initial encounter; Z86.73 Personal history of transient ischemic attack (TIA), and cerebral infarction without residual deficits